=== PATIENT | female | born 1980 | race Caucasian/White ===

== ENCOUNTER 2020-07-03 15:36 | Outpatient (CLI) | payer OTHER, SELFPAY ==
--- NOTE | ~2020-07-03 | MM_ITS ---
EXAMINATION: MM screening kory BI w adalberto HISTORY: Screening mammogram TECHNIQUE: Craniocaudal and mediolateral oblique 3-D tomosynthesis images were obtained and synthetic 2-D images were generated. CAD analysis was submitted and interpreted. COMPARISON: No prior mammogram is available for comparison at this institution. BREAST PARENCHYMAL COMPOSITION: The breasts are heterogeneously dense, which may obscure small masses . FINDINGS: RIGHT BREAST: There is no evidence of suspicious mass, calcification, or architectural distortion to suggest malignancy. LEFT BREAST: An asymmetry is present in the middle third of the lower breast on the mediolateral obli que view. IMPRESSION: 1. Right breast asymmetry which may represent the patient's baseline however no comparison is current ly available. 2. Comparison with prior mammograms is necessary. BI-RADS Category 0: Incomplete: Needs comparison with prior mammograms. Reviewed, dictated and finalized at location A. IMPRESSION: 1. Right breast asymmetry which may represent the patient's baseline however no comparison is currently available. 2. Comparison with prior mammograms is necessary. BI-RADS Category 0: Incomplete: Needs comparison with prior mammograms.
== END 2020-07-03 15:37 | disposition home or self-care (01) ==
LOC: ANHIMG 15:43
PROVIDERS: Visit Provider Obstetrics & Gynecology
DX: Z12.31 Encounter for screening mammogram for malignant neoplasm of breast (principal); R92.8 Other abnormal and inconclusive findings on diagnostic imaging of breast
CPT/HCPCS: 77063; 77067

== ENCOUNTER 2020-07-31 13:34 | Outpatient (CLI) | payer OTHER, SELFPAY ==
--- NOTE | ~2020-07-31 | MM_ITS ---
EXAMINATION: MM diagnostic mammo unilat RT HISTORY: Right breast asymmetry on screening mammogram TECHNIQUE: Additional 3-D tomosynthesis images of the right breast were performed and synthetic 2-D i mages were generated. CAD analysis was submitted and interpreted. COMPARISON: 07/03/2020, 05/28/2019, 06/08/2018 FINDINGS: There is a return to baseline fibroglandular appearance with spot compression of the right breast in the area questioned on screening mammogram. There is no suspicious mass, calcification, or architectural distortion. IMPRESSION: 1. No mammographic evidence of malignancy. 2. Recommend routine screening mammography in one year. BI-RADS Category 1: Negative Reviewed, dictated and finalized at location A.
== END 2020-07-31 13:35 | disposition home or self-care (01) ==
LOC: ANHIMG 13:35
PROVIDERS: Visit Provider Obstetrics & Gynecology
DX: R92.8 Other abnormal and inconclusive findings on diagnostic imaging of breast (principal)
CPT/HCPCS: 77065

== ENCOUNTER → 2020-08-26 00:58 | Outpatient (CLI) | payer OTHER, SELFPAY ==
[2020-08-26 23:32] LABS: SARS-CoV-2 RNA PCR Negative
== END ==
PROVIDERS: Visit Provider Obstetrics & Gynecology
DX: Z01.812 Encounter for preprocedural laboratory examination (principal); Z20.822 Contact with and (suspected) exposure to COVID-19
CPT/HCPCS: C9803; U0003; U0005

== ENCOUNTER 2020-08-30 01:52 | Day surgery (SDC) | payer OTHER, SELFPAY ==
[2020-08-23 10:28] VITALS: BMI 17.4
--- NOTE | 2020-08-29 15:20 | WPDANESEPPF ---
Anes - Initial Pre Proc Eval Procedure: Operation Date: 08/30/20 07:30 Proposed Procedures p Hysteroscopy, Dilation and Curettage with Endometrial Ablation - Argenis Shore MD s Excision Vulva Lesion - Argenis Shore MD Date/Time: 08/29/20 15:20 Surgeon: Argenis Shore MD Pre Op Diagnosis: lesion of vulva, menorrhaghia Patient Data Age: 39 Gender: F Height: 1.8 m Weight: 56.7 kg Allergies Allergy/AdvReac Type Severity Reaction Status Date / Time No Known Allergies Allergy Verified 08/23/20 10:28 Home Medications Medication Instructions Recorded Confirmed Type No Home Medications 08/23/20 08/23/20 History Patient hx anesthesia problems: none Family hx anesthesia problems: none PMF Past Medical History Medical History Abnormal uterine bleeding Smoker Social History Social History Smoking packs per day: 0.5 Smoking cigarettes per day: 10.0 Years smoked: 20 Smoking pack-years: 10.00 Smoking status: Current every day smoker Tobacco type: cigarettes Alcohol intake: current Alcohol use details: 3-4/MONTH Substance use: current Substance use type: marijuana Other substance usage details: EDIBLES, LIQUID Last use: 08/22/20 Living arrangements: with family Spiritual care concerns: No Anes - Eval Final PreProcedure Day of Procedure 08/29/20 15:20 Patient weight: thin Heart: regular rate and rhythm Lungs: clear to auscultation and normal air movement Airway: Mallampati scale class II Neurological: alert and oriented Last oral intake: >/= 8 hours ASA classification: II Emergent: no Anesthetic plan: proceed Anesthesia type and monitoring: general GIVS Informed Consent: The patient's anesthetic plan and its attendant risks and benefits were discussed with the patient/family/POA. Questions were solicited and answers provided to the satisfaction of the patient/family/POA.
[2020-08-30] VITALS (8 sets, daily range): BP systolic 99–125; BP diastolic 51–81; PULSE 53–70; RESP 16–20; TEMP 36.6; O2SAT 100
[2020-08-30] MEDS: LACTATED RINGERS 1,000 ML 30 ML IV CONT (07:00)
[2020-08-30] MEDS: ACETAMINOPHEN 500 MG TABLET 1000 MG PO (07:00)
--- NOTE | 2020-08-30 07:47 | WPDHPUPDATE1 ---
History and Physical Update Update Date/Time: 08/30/20 07:47 History and Physical has been reviewed, including an updated exam of the patient. There are NO changes in the patient's condition. Risks, benefits, and alternatives have been discussed and questions answered. Patient agrees to proceed with procedure.
[2020-08-30] MEDS: LIDO 1%/EPINEPHRINE 1:100,000 50 ML VIAL 10 ML INFILTRATE (08:15)
--- NOTE | 2020-08-30 08:42 | SUR.OPER ---
400ml ivns in and 350ml ivns out
--- NOTE | 2020-08-30 09:03 | PM.PROC ---
Procedure Note - Detailed Date of procedure: 08/30/20 Pre-op diagnosis: lesion of vulva, menorrhaghia Post-op diagnosis: same Procedure performed: Hysteroscopy D&C, endometrial ablation Description of procedure: The patient was taken the operating room. She has prepped and draped in the dorsal lithotomy position. Speculum was placed the vagina. The cervix grasped with a tenaculum. The cervix was injected at 3 and 9:00 a.m. with 1% lidocaine. The hysteroscope was inserted the intrauterine cavity through the cervix. The above findings were noted. The hysteroscope and uterine sound were used to calculate endometrial cavity length. The endometrial cavity length was entered into the device hand piece. The endometrial cavity was curettaged thoroughly with a medium-size curette. All surfaces were curettaged. The sample was sent to pathology. The device was placed in the intrauterine cavity and the array was expanded. The balloon cuff was inflated. The power and safety checks were initiated. Never completed the array was collapsed and the balloon cuff was collapsed. The device was withdrawn. The hysteroscope was inserted back into the intrauterine cavity and well desiccated endometrial cavity was observed. The speculum was removed. The tenaculum was removed. Three superficial vulvar lesions were excised using a scalpel. Two were sutured with 1 single cyst ditch of 4 0 Vicryl. The other was made hemostatic with silver nitrate. The patient tolerated procedure well. She is take covering stable condition. Anesthesia: MAC Surgeon: Argenis Shore MD Estimated blood loss (mL): 15 Drains: No Packing: No Pathology: yes Complications: No immediate complications Condition: stable Disposition: PACU Findings: Normal appearing vulva vagina and cervix., normal-appearing intrauterine cavity. Three vulvar lesions of less than 7 mm each. Three flat lesions that appear benign.
[2020-08-30] MEDS: oxyCODONE HCL (*CRX) 5 MG TAB IR PO (10:05)
[2020-08-30] MEDS: fentaNYL CITRATE INJ (*CRX) 100 MCG/2 ML VIAL 25 MCG IV PUSH ×4 (10:27→10:38)
--- NOTE | 2020-08-30 11:10 | SUR.PHASEII ---
1045 - dr. triplett called and aware of pt's c/o cramping and request for pain medication at home. dr. triplett stated that he would send a prescription to her pharmacy. pt and pt's family aware.
== END 2020-08-30 11:14 | disposition home or self-care (01) ==
PROVIDERS: Visit Provider Obstetrics & Gynecology
PROC: 0U5B8ZZ Destruction of Endometrium, Via Natural or Artificial Opening Endoscopic (ICD-10-PCS; CPT 58563; principal; 2020-08-30 07:30)
PROC: (CPT 58563; 2020-08-30 07:30)
DX: N92.0 Excessive and frequent menstruation with regular cycle (principal); L82.1 Other seborrheic keratosis; F17.210 Nicotine dependence, cigarettes, uncomplicated; F12.90 Cannabis use, unspecified, uncomplicated
CPT/HCPCS: 58563; 11421; 88305; A9270; J2250; J2704; J3010; J7030; J7120

== ENCOUNTER 2023-07-01 12:41 | Outpatient (CLI) | payer OTHER, SELFPAY ==
--- NOTE | ~2023-07-01 | MM_ITS ---
EXAMINATION: MM diagnostic kory BI w adalberto HISTORY: Palpable left breast abnormality for 1-2 months TECHNIQUE: Additional 3-D tomosynthesis images of the breasts were performed and synthetic 2-D images were generated. CAD analysis was submitted and interpreted. COMPARISON: Comparison to multiple prior studies sequentially, with oldest reviewed study dated 10/2017. BREAST PARENCHYMAL COMPOSITION: Dense: The breasts are extremely dense, which lowers the sensitivity of mammography. FINDINGS: There are no suspicious masses, calcifications or architectural distortion in either breast to suggest malignancy. The breasts are stable. IMPRESSION: 1. No mammographic evidence for malignancy in either breast. 2. Correlation with targeted left breast ultrasound recommended. BI-RADS Category 0: Incomplete: Needs additional imaging evaluation. Reviewed, dictated and finalized at location A.
== END 2023-07-01 12:42 | disposition home or self-care (01) ==
PROVIDERS: Visit Provider Obstetrics & Gynecology
DX: N63.10 Unspecified lump in the right breast, unspecified quadrant (principal); R92.8 Other abnormal and inconclusive findings on diagnostic imaging of breast
CPT/HCPCS: 77062; 77066; G0279